=== PATIENT | male | born 1960 | race Hispanic/Latino ===

== ENCOUNTER 2020-06-08 18:54 | Emergency (ER) | payer BC ==
--- NOTE | 2020-06-08 20:51 | Event Note ---
ED Screening Note ED Screening Note: n/v that began two days ago >10episodes a day no diarrhea no abd pain no CP no fever states had syncopal episode and hurt right hand +headache +lightheaded +blurry vision pmhx DM, RA allergy codeine, sulfa This initial assessment/diagnostic orders/clinical plan/treatment(s) is/are subject to change based on patients health status, clinical progression and re- assessment by fellow clinical providers in the ED. Further treatment and workup at subsequent clinical providers discretion. Patient/guardian urged not to elope from the ED as their condition may be serious if not clinically assessed and managed. Initial orders include: labs, ct, xr, ua, ekg
[2020-06-08 21:14] LABS: Basophils % (Auto) 0.3 % (0.0-1.8); Eosinophils # (Auto) 0.3 K/mm3 (0.0-0.4); Hematocrit 46.9 % (35.5-45.6); Hemoglobin 15.9 gm/dl (11.8-15.2); Lymphocytes # (Auto) 2.3 K/mm3 (1.2-5.4); Lymphocytes % (Auto) 16.5 % (13.4-35.0); Mean Corpuscular HGB Conc 34 % (32-34); Mean Corpuscular Volume 94 fl (84-94); Monocytes # (Auto) 0.8 K/mm3 (0.0-0.8); Monocytes % (Auto) 5.8 % (0.0-7.3); Platelet Count 337 K/mm3 (140-440); Red Blood Count 5.02 M/mm3 (3.65-5.03); Red Cell Distribution Width 12.9 % (13.2-15.2)
[2020-06-08 21:23] LABS: INR 0.97 (0.87-1.13)
[2020-06-08 21:24] LABS: Partial Thromboplastin Time 29.9 Sec. (24.2-36.6)
[2020-06-08 21:38] LABS: Alanine Aminotransferase 27 units/L (7-56); Albumin 4.9 g/dL (3.9-5); BUN/Creatinine Ratio 18; Blood Urea Nitrogen 24 mg/dL (9-20); Calcium 9.9 mg/dL (8.4-10.2); Hemolysis Index 6
--- NOTE | 2020-06-08 21:48 | XRay Report ---
CHEST 2 VIEWS INDICATION / CLINICAL INFORMATION: syncope. COMPARISON: None available. FINDINGS: SUPPORT DEVICES: None. HEART / MEDIASTINUM: No significant abnormality. LUNGS / PLEURA: No significant pulmonary or pleural abnormality. No pneumothorax. ADDITIONAL FINDINGS: No significant additional findings. IMPRESSION: 1. No acute findings. Signer Name: Max Hammond MD Signed: 06/08/2020 9:44 PM Workstation Name: [id number]
--- NOTE | 2020-06-08 21:51 | XRay Report ---
RIGHT HAND 3 VIEW(S) INDICATION / CLINICAL INFORMATION: syncopal episode, right hand pain and swelling COMPARISON: None available. FINDINGS: BONES / JOINT(S): No acute fracture or subluxation. Mild degenerative change at the first carpal meta carpal joint. SOFT TISSUES: No significant abnormality. ADDITIONAL FINDINGS: None. Signer Name: Max Hammond MD Signed: 06/08/2020 9:47 PM Workstation Name: [id number]
--- NOTE | 2020-06-08 21:57 | Cat Scan Report ---
CT head/brain wo con INDICATION / CLINICAL INFORMATION: 59 years Male; Syncopal episodes, Pt states he is dehydrated and has a headache. TECHNIQUE: Routine CT head without contrast. All CT scans at this location are performed using CT dos e reduction for ALARA by means of automated exposure control. COMPARISON: None. FINDINGS: BRAIN / INTRACRANIAL CONTENTS: There appears be mild cerebral white matter changes most consistent wi th mild microvascular angiopathy. There is also mild cerebral atrophy. The ventricular system is luz espondingly appropriate in size and configuration. There is no clear CT evidence of acute intracrania l hemorrhage or significant mass effect. ORBITS: No significant abnormality of visualized orbits. SINUSES / MASTOIDS: No significant abnormality in the visualized paranasal sinuses or mastoid air johnson ls. CRANIOCERVICAL JUNCTION: No significant abnormality. ADDITIONAL FINDINGS: None. IMPRESSION: 1. There is no clear CT evidence of acute intracranial process. Signer Name: Bo Mcclain MD Signed: 06/08/2020 9:53 PM Workstation Name: [id number]
[2020-06-09] MEDS ORDERED: SODIUM CHLORIDE 0.9% 1000 ML 1,000 ML IV ONE ×2 (00:01→02:15)
[2020-06-09] MEDS ORDERED: SODIUM CHLORIDE 0.9% 1000 ML 1,000 ML ONE ×2 (00:14→02:23)
[2020-06-09] MEDS ORDERED: ONDANSETRON 4 MG/2 ML INJ ONE ×2 (00:14→02:23)
[2020-06-09] MEDS ORDERED: ONDANSETRON 4 MG/2 ML INJ IV ONE ×2 (00:15→02:15)
--- NOTE | 2020-06-09 03:45 | Cat Scan Report ---
Exam has been dictated earlier this morning. Signer Name: Carlos Zapata MD Signed: 06/09/2020 3:40 AM Workstation Name: [id number]
[2020-06-09 04:03] LABS: Bilirubin,Urine NEG (Negative); Blood,Urine NEG (Negative); Color,Urine Yellow (Yellow); Mucus,Urine FEW /HPF; Urobilinogen,Urine < 2.0 mg/dL (<2.0)
--- NOTE | 2020-06-09 04:11 | Emergency Department Report ---
ED N/V/D HPI - General Chief complaint: Nausea/Vomiting/Diarrhea Stated complaint: VOMITING/DIZZY/PASSOUT Time Seen by Provider: 06/08/20 20:49 Source: patient Mode of arrival: Ambulatory Limitations: No Limitations, Physical Limitation - History of Present Illness Initial comments: 59-year-old male with history of diabetes, psoriasis, presents to ED with complaint of nausea and vomiting x3 days. Patient states he has been unable to keep anything on his stomach. Patient denies any associated abdominal pain, diarrhea, fever. Patient reports dizziness and syncopal episode as well. He denies any chest pain. Patient denies any sick contacts. Patient reports he recovered from COVID-19 infection in February 2020. Please see additional downtime chart as patient was seen during downtime procedures. MD complaint: nausea, vomiting -: days(s) (3) Description of Vomiting: food contents Associated Abdominal Pain: No Severity: moderate Consistency: constant Improves with: none Worsens with: eating Associated Symptoms: syncope. denies: chest pain, cough, fever/chills, shortness of breath - Related Data Previous Rx's Medication Instructions Recorded Last Taken Type Ondansetron [Zofran Odt] 4 mg PO Q8HR PRN #20 tab.rapdis 06/09/20 Unknown Rx Allergies Allergy/AdvReac Type Severity Reaction Status Date / Time codeine Allergy Rash Verified 06/08/20 20:22 Sulfa (Sulfonamide Allergy Rash Verified 06/08/20 20:22 Antibiotics) ED Review of Systems ROS: Stated complaint: VOMITING/DIZZY/PASSOUT Other details as noted in HPI Comment: All other systems reviewed and negative Constitutional: weakness. denies: chills, fever Cardiovascular: denies: chest pain Gastrointestinal: nausea, vomiting. denies: abdominal pain, diarrhea Neurological: denies: headache ED Past Medical Hx - Past Medical History Previous Medical History?: Yes Hx Hypertension: Yes Hx CVA: Yes Hx Diabetes: Yes Hx Renal Disease: Yes Hx Arthritis: Yes Hx Seizures: Yes - Surgical History Past Surgical History?: Yes Additional Surgical History: knee, carpal tunnel, hemorrhoidectomy - Medications Home Medications: Home Medications Medication Instructions Recorded Confirmed Last Taken Type Ondansetron [Zofran Odt] 4 mg PO Q8HR PRN #20 tab.rapdis 06/09/20 Unknown Rx ED Physical Exam - General Limitations: No Limitations, Physical Limitation General appearance: alert, in no apparent distress - Head Head exam: Present: atraumatic, normocephalic - Eye Eye exam: Present: normal appearance, PERRL, EOMI - ENT ENT exam: Present: mucous membranes moist - Neck Neck exam: Present: normal inspection - Respiratory Respiratory exam: Present: normal lung sounds bilaterally. Absent: respiratory distress - Cardiovascular Cardiovascular Exam: Present: normal rhythm, tachycardia - GI/Abdominal GI/Abdominal exam: Present: soft. Absent: distended, tenderness - Extremities Exam Extremities exam: Present: normal inspection - Neurological Exam Neurological exam: Present: alert, oriented X3, CN II-XII intact. Absent: motor sensory deficit - Psychiatric Psychiatric exam: Present: normal affect, normal mood - Skin Skin exam: Present: warm, dry, intact, normal color ED Course Vital Signs 06/08/20 06/08/20 06/08/20 20:19 23:40 23:46 Temperature 98.1 F Pulse Rate 112 H 108 H 108 H Respiratory 17 26 H 13 Rate Blood Pressure 157/77 149/78 Blood Pressure 149/78 [Left] O2 Sat by Pulse 98 98 100 Oximetry 06/09/20 06/09/20 06/09/20 00:00 00:16 00:30 Temperature Pulse Rate 105 H 105 H 101 H Respiratory 12 17 18 Rate Blood Pressure 149/78 141/78 145/82 Blood Pressure [Left] O2 Sat by Pulse 98 100 98 Oximetry 06/09/20 06/09/20 06/09/20 01:00 01:26 01:30 Temperature Pulse Rate 101 H 103 H 103 H Respiratory 20 16 13 Rate Blood Pressure 141/74 140/73 140/73 Blood Pressure [Left] O2 Sat by Pulse 96 98 99 Oximetry 06/09/20 06/09/20 06/09/20 01:46 02:00 02:30 Temperature Pulse Rate 102 H 102 H 102 H Respiratory 12 13 14 Rate Blood Pressure 154/84 147/86 141/78 Blood Pressure [Left] O2 Sat by Pulse 99 99 98 Oximetry 06/09/20 06/09/20 06/09/20 02:46 03:00 03:16 Temperature Pulse Rate 101 H 100 H 102 H Respiratory 12 15 14 Rate Blood Pressure 154/78 151/78 140/73 Blood Pressure [Left] O2 Sat by Pulse 96 88 98 Oximetry - Reevaluation(s) Reevaluation #1: 06/09/20 04:14 Patient states he is feeling much better at this time following 2 L bolus of fluids. We will repeat the BMP at this time. Reevaluation #2: 06/09/20 06:15 Still waiting for repeat BMP to result. Patient does not want to wait for these labs. States he needs to go because his is here to pick him up and she is starting a new job at 8 AM. I spoke with patient and he is aware that there is a possibility that his lab values may have worsened. Patient understands and states that he is okay with that risk. Patient is feeling much better at this time. Tolerating p.o. Able to drink a cup of apple juice. Patient advised to continue to hydrate at home. Prescription for Zofran will be given. ED Medical Decision Making - Lab Data Result diagrams: 06/08/20 21:00 06/08/20 21:00 - EKG Data -: EKG Interpreted by Me EKG shows normal: sinus rhythm, axis, intervals, QRS complexes, ST-T waves Rate: tachycardia (rate 111) - EKG Data Interpretation: no acute changes - Radiology Data Radiology results: report reviewed, image reviewed CT abdomen pelvis shows no acute abnormalities. CT performed during downtime procedures. - Medical Decision Making 59-year-old male presents to ED with 3-day history of nausea vomiting, feeling weak and dehydrated, reporting syncopal episode. Patient initially with some tachycardia on arrival. Patient is afebrile. Blood pressure is normal. Patient does have elevated WBCs of 14. Chest x-ray is normal. UA is negative for UTI. CT abdomen pelvis showed no acute findings. Patient did have a slight metabolic acidosis with bicarb of 17, ketonuria, and some mild renal insufficiency. Patient has been given 2 L bolus of normal saline IV. Currently, he is feeling much better. He is tolerating ice chips. Patient has had no emesis since Zofran administration. Critical care attestation.: If time is entered above; I have spent that time in minutes in the direct care of this critically ill patient, excluding procedure time. ED Disposition Clinical Impression: Nausea & vomiting, Dehydration, Syncope Is pt being admited?: No Condition: Stable Instructions: Nausea and Vomiting, Adult, [id number], Dehydration, Adult, [id number], Syncope, [id number], Syncope (ED) Prescriptions: Ondansetron [Zofran Odt] 4 mg PO Q8HR PRN #20 tab.rapdis PRN Reason: Vomiting Referrals: DR DOMO [Other] - 3-5 Days [facility] [Provider Group] - 3-5 Days TRESSA FOX MD [Staff Physician] - 3-5 Days Time of Disposition: 06:15
[2020-06-09 05:57] LABS: Calcium 8.8 mg/dL (8.4-10.2)
[2020-06-09 06:21] VITALS: BP 155/80
--- NOTE | 2020-06-11 10:32 | Electrocardiograph Report ---
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
== END 2020-06-09 06:20 | disposition home or self-care (01) ==
LOC: ED 18:54
DX: R55 Syncope and collapse (principal); E86.0 Dehydration; R11.2 Nausea with vomiting, unspecified; I10 Essential (primary) hypertension; E11.9 Type 2 diabetes mellitus without complications; M19.91 Primary osteoarthritis, unspecified site; R56.9 Unspecified convulsions; Z90.89 Acquired absence of other organs; Z98.890 Other specified postprocedural states; Z79.899 Other long term (current) drug therapy; Z88.2 Allergy status to sulfonamides; Z88.8 Allergy status to other drugs, medicaments and biological substances
CPT/HCPCS: 36415; 70450; 71046; 73130; 74177; 80048; 80053; 81001; 82550; 82962; 83735; 84443; 84484; 85025; 85610; 85730; 93005; 96361; 96374; 96376; 99284; J2405; J7030; Q9967